=== PATIENT | female | born 1955 | race Two or more races ===

== ENCOUNTER 2023-09-08 09:23 | Outpatient (CLI) | payer OTHER ==
[~2023-09-08 09:23] MED LIST: CLONAZEPAM0.5 MG; DOVATO 50-3001 EACH PO; PAROXETINE HCL20 MG PO; PAXIL40 MG; ROSUVASTATIN CA10 MG PO; STRIBILD TABLE1 EACH; VITAMIN D350 MC4 PO
== END 2023-09-08 09:32 | disposition home or self-care (01) ==
LOC: TOM 09:23
PROVIDERS: ATTEND Internal Medicine Infectious Disease
DX: R91.1 Solitary pulmonary nodule (principal)

== ENCOUNTER 2023-12-28 15:52 | Emergency (ER) | payer OTHER ==
[~2023-12-28] VITALS: Ht 160 cm; Wt 77.1 kg
[2023-12-28] MEDS ORDERED: IBUPROFEN800 MG PO (20:12)
[2023-12-28] MEDS ORDERED: ZANAFLEX4 M1 PO (20:12)
[2023-12-28] MEDS ORDERED: NEURONTIN300 MG PO (20:12)
[2023-12-28] MEDS ORDERED: KETOROLAC TROMETHAMINE 30 MG VIAL IM STA (20:24)
[2023-12-28] MEDS ORDERED: ORPHENADRINE CITRATE 30 MG/ML AMPUL IM STA (20:25)
[2023-12-28] MEDS ORDERED: DEXAMETHASONE SODIUM PHOSPHATE 4 MG/ML VIAL IM STA (20:25)
== END 2023-12-28 20:34 | disposition home or self-care (01) ==
LOC: ER 15:54
DX: M54.16 Radiculopathy, lumbar region (principal)
CPT/HCPCS: 96372; 99282; J1100; J1885; J2360

== ENCOUNTER 2024-04-16 22:46 | Emergency (ER) | payer OTHER ==
[~2024-04-16] VITALS: Ht 157.5 cm; Wt 59.0 kg
[~2024-04-16 22:46] MED LIST changes: +IBUPROFEN800 MG PO; +NEURONTIN300 MG PO; +ZANAFLEX4 M1 PO
[2024-04-17] MEDS ORDERED: ORPHENADRINE CITRATE 30 MG/ML AMPUL IM STA (00:19)
[2024-04-17] MEDS ORDERED: KETOROLAC TROMETHAMINE 60 MG VIAL IM STA (00:19)
[2024-04-17] MEDS ORDERED: ORPHENADRINE CITRATE 30 MG/ML AMPUL ONE (00:25)
[2024-04-17] MEDS ORDERED: KETOROLAC TROMETHAMINE 60 MG VIAL IM ONE (00:25)
[2024-04-17] MEDS ORDERED: NORFLEX100MG PO ×2 (04:21→04:22)
[2024-04-17] MEDS ORDERED: KETO10TA2 PO ×2 (04:21→04:22)
== END 2024-04-17 04:55 ==
LOC: ER 22:48
DX: R07.89 Other chest pain (principal); B20 Human immunodeficiency virus [HIV] disease